=== PATIENT | female | born 1965 | race Caucasian/White ===

== ENCOUNTER → 2020-10-15 | Outpatient (CLI) | payer OTHER ==
[~2020-10-15] MED LIST: CITALOPRAM HBR40 MG PO; COLACE 100 MG100 MG PO; IMITREX100 MG PO; OMEPRAZOLE40 MG PO; PERCOCET PO; PREMPRO 0.3 MG1 EACH PO; VITAMIN D-40010 MCG PO; WOMEN'S DAILY1 EACH PO; XARELTO10 MG PO
== END ==
LOC: M.MRI 10-12 15:00
PROVIDERS: ATTEND Orthopaedic Surgery
DX: S83.242A Other tear of medial meniscus, current injury, left knee, initial encounter (principal); M17.12 Unilateral primary osteoarthritis, left knee; X58.XXXA Exposure to other specified factors, initial encounter; Y93.89 Activity, other specified; Y92.89 Other specified places as the place of occurrence of the external cause; Y99.8 Other external cause status

== ENCOUNTER → 2020-10-27 | Outpatient (CLI) | payer OTHER ==
[~2020-10-27] MED LIST changes: -COLACE 100 MG100 MG PO; -PERCOCET PO; -XARELTO10 MG PO
[2020-10-27 10:21] LABS: ABSOLUTE BASOPHILS 0.1 thou/uL (0.0-0.2); ABSOLUTE EOSINOPHILS 0.1 thou/uL (0.0-0.7); ABSOLUTE LYMPHOCYTES 1.3 thou/uL (0.8-5.3); ABSOLUTE MONOCYTES 0.4 thou/uL (0.0-1.2); BASOPHILS 0.9 %; EOSINOPHILS 1.7 %; HEMATOCRIT 41.6 % (37.0-47.0); HEMOGLOBIN 14.6 gm/dL (12.0-15.0); LYMPHOCYTES 22.6 %; MCH 29.6 pg (26.0-34.0); MCV 84.5 fL (80.0-100.0); MONOCYTES 6.9 %; NUCLEATED RBCS 0 /100WBC; PLATELET COUNT* 292 thou/uL (150-400); POLYS 67.9 %; RBC 4.93 mil/uL (4.20-5.00); RDW-CV 12.8 % (10.5-14.5); WBC 5.9 thou/uL (4.0-11.0)
[2020-10-27 10:22] LABS: URINE BILIRUBIN NEGATIVE (Negative); URINE BLOOD NEGATIVE (Negative); URINE CLARITY CLEAR; URINE COLOR YELLOW; URINE GLUCOSE-RANDOM NEGATIVE (Negative); URINE KETONES NEGATIVE (Negative); URINE LEUKOCYTES-REFLEX NEGATIVE (Negative); URINE NITRITE-REFLEX NEGATIVE (Negative); URINE PROTEIN NEGATIVE (Negative); URINE UROBILINOGEN 0.2 E.U./dl (0.2-1.0)
[2020-10-27 10:33] LABS: PROTIME 10.7 Seconds (9.20-11.50)
[2020-10-27 10:41] LABS: ALBUMIN 3.5 g/dL (3.4-5.0); CALCIUM 9.1 mg/dL (8.5-10.1); CREATININE 0.7 mg/dL (0.6-1.3); POTASSIUM 4.1 mmol/L (3.5-5.1); TOTAL BILIRUBIN 0.3 mg/dL (<0.1-1.0); TOTAL PROTEIN 7.2 g/dL (6.4-8.2)
--- NOTE | 2020-10-27 11:48 | EKG ---
[place] [address] ELECTROCARDIOGRAM REPORT Name: LIZ GAN Room: [facility]#: [id number] Admission: 10/27/20 Attend Phys: Venancio Marin, Discharge: Date of : 61 Date of Service: 10/27/20958 Report #: [id number] THIS REPORT FOR: //name// [facility] Test Date: 2020-10-27 Test Time: 09:59:15 Pat Name: LIZ GAN Department: Room: Gender: F Pen Maker: : 1965 Requested By: Venancio Marin Order Number: [id number] [place] MD: Emile Bell Measurements Intervals [place] Rate: 87 P: 67 MS: 146 QRS: 51 QRSD: 89 T: 64 QT: 378 QTc: 455 Interpretive Statements Sinus rhythm No previous ECG available for comparison Electronically Signed On 10-27-2020 11:48:04 CDT by Emile Bell [email or web address] <ELECTRONICALLY SIGNED> By: Emile Bell MD, [facility] 10/27/20 [id number] Emile Bell MD, FACC /EPI
== END ==
LOC: M.LAB 09:45
PROVIDERS: ATTEND Orthopaedic Surgery
DX: Z01.818 Encounter for other preprocedural examination (principal); M17.12 Unilateral primary osteoarthritis, left knee

== ENCOUNTER 2020-11-03 05:14 | Observation (INO) | payer OTHER ==
[~2020-11-03] VITALS: Ht 172.7 cm; Wt 104.3 kg
--- NOTE | ~2020-11-03 | OP ---
[address] [address] OPERATIVE REPORT Name: LIZ GAN Room: [address] M.R.#: [id number] Admission: 11/03/20 Attend Phys: Juan Vaughn Discharge: Date of : 61 Report #: [id number] THIS REPORT FOR: cc: Kassidy Rascon MD, Rachel L. MD Greiner, Robert F. II DO ~ DATE OF SERVICE: 11/03/2020 PREOPERATIVE DIAGNOSIS: Left knee osteoarthritis. POSTOPERATIVE DIAGNOSIS: Left knee osteoarthritis. PROCEDURE: Left total knee arthroplasty with Journey II. SURGEON: Venancio Marin II, DO [employer] MAKER: ELIAS Ware ANESTHESIA: General endotracheal. ESTIMATED BLOOD LOSS: 50 mL. ANTIBIOTICS: Ancef preoperatively. DRAINS: Hemovac. COMPLICATIONS: None. CONDITION OF THE PATIENT: Stable to recovery room. IMPLANTS: Listed in operative record and progress note. BRIEF HISTORY: The patient was seen in the preoperative area. Preoperative H and P was performed. Site was marked, questions were answered. Risks and benefits were discussed in detail about surgery. The patient wished to proceed, assuming all risks. DESCRIPTION OF PROCEDURE: The patient was taken to the operative suite, placed supine on the operative table and given appropriate anesthesia. A well-padded tourniquet was applied to the affected thigh, which was then inflated to 300 mmHg after gravity exsanguination for the duration of procedure. The operative knee was sterilely prepped and draped. Surgery began by midline incision. This was carried down to the subcutaneous tissues. A medial parapatellar arthrotomy was performed and carried down to bone. Patella was then everted and excess soft tissues were removed from around the femur. Femoral cutting block was then [facility] [address] [place] [address] OPERATIVE REPORT Name: LIZ GAN Room: [address] Maria E Sepulveda#: [id number] Admission: 11/03/20 Attend Phys: Juan Vaughn Discharge: Date of : 61 Report #: [id number] applied, checked with drop leydi for rotational alignment, pinned in appropriate position and appropriate cuts were made. A -in-1 cutting block was then applied, checked for rotational alignment, pinned in appropriate position and appropriate cuts were made. The tibia was then exposed and excess meniscus was removed. Retractor was placed on collateral ligaments. The tibial cutting block was applied, pinned in appropriate position, checked with drop leydi for rotational alignment and slope and appropriate cut was made. Tibial bone was removed. Tibial base plate was then applied, checked for rotational alignment with the drop leydi and pinned in appropriate position. The femur was then applied and box cut was reamed. This was then trialed with appropriate spacer, which showed excellent fit and fill and excellent stability of the knee through all range of motion. The patella was then reamed in appropriate fashion and sized to appropriate size. Three peg holes were drilled and knee was then trialed and showed excellent flexion and extension, excellent tracking of the patella within the groove. These trials were removed. The tibia was punched in appropriate fashion. Bone ends were cleansed with Pulsavac irrigation and cement was mixed and applied to final implants. These were then malleted into position and held the knee in extension and compressed to allow cement to cure. After it cured, excess was removed using a Eugene and osteotome. Wound was then copiously irrigated and the final spacer was malleted into position. Tourniquet was deflated. Hemostasis was maintained with electrocautery. Pain cocktail was injected. Medium Hemovac drain was applied. Capsule was closed with #2 FiberWire and #1 Vicryl in [id number] fashion. Skin was closed with 2-0 Vicryl and running 3-0 Monocryl. Dermabond and sterile dressing applied. Mc wrap and PolarCare applied. The patient transported to recovery room in stable condition. Counts were correct throughout the procedure. By: [id number] Marin II, DO /nt
[2020-11-03 10:00] VITALS: BP 148/85
[2020-11-03 14:30] VITALS: BP 134/84
[2020-11-03 16:06] VITALS: BP 144/73
[2020-11-03 20:51] VITALS: BP 113/48
[2020-11-04] VITALS (7 sets, daily range): BP systolic 110–147; BP diastolic 57–69
[2020-11-04 03:50] LABS: ALBUMIN 3.2 g/dL (3.4-5.0); ALKALINE PHOSPHATASE 75 U/L (46-116); ANION GAP 9 mmol/L (7-16); BUN 11 mg/dL (7-18); CALCIUM 9.1 mg/dL (8.5-10.1); CHLORIDE 101 mmol/L (98-107); CHOLESTEROL 187 mg/dL (<200); CO2 28 mmol/L (21-32); CREATININE 0.7 mg/dL (0.6-1.3); GLUCOSE 113 mg/dL (70-99); HDL CHOLESTEROL 41 mg/dL (>40); LDL CHOLESTEROL 118 mg/dL (<100); SGOT 26 U/L (15-37); SGPT 33 U/L (30-65); SODIUM 138 mmol/L (136-145); TC:HDL 4.6 Ratio (Not establshd); TOTAL BILIRUBIN 0.3 mg/dL (<0.1-1.0); TRIGLYCERIDE 141 mg/dL (<150); VLDL 28 mg/dL (<40)
[2020-11-04 03:52] LABS: SERUM ASSESSMENT Clear
[2020-11-04 03:56] LABS: HEMATOCRIT 37.1 % (37.0-47.0); HEMOGLOBIN 12.7 gm/dL (12.0-15.0)
[2020-11-04] MEDS ORDERED: COLACE 100 MG100 MG PO (09:03)
[2020-11-04] MEDS ORDERED: PERCOCET PO (09:03)
[2020-11-04] MEDS ORDERED: XARELTO10 MG PO (09:03)
== END 2020-11-04 15:00 | disposition home or self-care (01) ==
LOC: M.PRE 05:14 → M.ORTHSURG 09:09 → M.TBA 09:09 → M.PRE 09:15 → M.ORTHSURG 14:08 → M.PRE 15:20 → M.ORTHSURG 11-04 15:00
PROVIDERS: Orthopaedic Surgery; ADMIT Internal Medicine; ATTEND Internal Medicine
DX: M17.12 Unilateral primary osteoarthritis, left knee (principal); K21.9 Gastro-esophageal reflux disease without esophagitis; I10 Essential (primary) hypertension; G43.909 Migraine, unspecified, not intractable, without status migrainosus; F32.9 Major depressive disorder, single episode, unspecified; M19.042 Primary osteoarthritis, left hand; M19.041 Primary osteoarthritis, right hand; Z79.899 Other long term (current) drug therapy

== ENCOUNTER → 2021-07-06 | Outpatient (CLI) | payer OTHER ==
[~2021-07-06] MED LIST changes: +COLACE 100 MG100 MG PO; +PERCOCET PO; +XARELTO10 MG PO
== END ==
LOC: M.LAB 16:50
PROVIDERS: ATTEND Orthopaedic Surgery
DX: Z01.812 Encounter for preprocedural laboratory examination (principal); Z20.822 Contact with and (suspected) exposure to COVID-19